=== PATIENT | female | born 1985 | race American Indian/Alaskan Native ===

== ENCOUNTER 2018-12-26 15:42 | Emergency (ER) | payer SELFPAY ==
[2018-12-26 15:59] VITALS: BP 110/53
--- NOTE | 2018-12-26 16:04 | Event Note ---
ED Screening Note Date of service: 12/26/18 Time: 15:58 ED Screening Note: 33 y/o female comes in for left trap pain. 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 Last took pain medication around 1pm. . This initial assessment/diagnostic orders/clinical plan/treatment(s) is/are s ubject to change based on patients health status, clinical progression and re- assessment by fellow clinical providers in the ED. Further treatment and workup at subsequent clinical providers discretion. Patient/guardian urged not to elope from the ED as their condition may be serious if not clinically assessed and managed. Initial orders include:
--- NOTE | 2018-12-26 16:08 | Emergency Department Report ---
Upper Extremity - HPI Chief Complaint: Extremity Problem,Nontraumatic Stated Complaint: SHOULDER/NECK PAIN Time Seen by Provider: 12/26/18 15:57 Upper Extremity: Right Shoulder Occurred When: 2 Days Mechanism: Twist Severity: moderate Symptoms: Yes Pain with Movement, No Deformity, No Limited Range of Movement, No Numbness, No Weakness, No Swelling, No Bruising/Ecchymosis, No Laceration or Abrasion Other History: 33 y/o female comes in for left trapeze pain. 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 Last took pain medication around 1pm. . ED Review of Systems ROS: Stated complaint: SHOULDER/NECK PAIN Other details as noted in HPI Comment: All other systems reviewed and negative ED Past Medical Hx - Past Medical History Previous Medical History?: No - Surgical History Past Surgical History?: No - Social History Smoking Status: Never Smoker Substance Use Type: None - Medications Home Medications: Home Medications Medication Instructions Recorded Confirmed Last Taken Type Baclofen [Lioresal] 10 mg PO TID PRN #15 tab 12/26/18 Unknown Rx Ibuprofen [Motrin 800 MG tab] 800 mg PO Q8HR PRN #15 tablet 12/26/18 Unknown Rx Upper Extremity Exam - Exam General: Vital signs noted. No distress. Alert and acting appropriately. Head and Torso: No HEENT Abnormality, No Neck Tenderness, No Chest/Lungs Abnormality, No Abdominal Tenderness, No Back Tenderness Shoulder Exam: Yes Shoulder Tenderness (Trapezez), Yes Normal Range of Motion in Shoulder, No Clavicle Tenderness, No Shoulder Deformity, No AC Joint Tenderness Arm Exam: No Arm/Humerus Tenderness, No Arm Deformity Elbow: No Elbow Tenderness, No Normal Range of Motion in Elbow, No Elbow Deformity Forearm: No Forearm Tenderness, No Forearm Deformity, No Pain with Pronation, No Pain with Supination Wrist: Yes Normal ROM in Wrist, No Wrist Tenderness, No Wrist Deformity, No Snuffbox Tenderness, No Pain with Axial Thumb Compression Hand: Yes Normal ROM in Digit(s), No Hand Tenderness, No Hand Deformity, No Digit Tenderness, No Digit(s) Deformity, No Tendon Dysfunction CMS Exam: No Broken Skin, No Normal Distal Pulses, No Normal Capillary Refill, No Normal Distal Sensation ED Course Vital Signs 12/26/18 15:57 Temperature 98.7 F Pulse Rate 90 Respiratory 18 Rate Blood Pressure 110/53 O2 Sat by Pulse 96 Oximetry ED Medical Decision Making - Medical Decision Making 33 y/o female comes in for left trap pain. 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 Last took pain medication around 1pm. . Will discharge on baclofen and Ibuprofen. Critical care attestation.: If time is entered above; I have spent that time in minutes in the direct care of this critically ill patient, excluding procedure time. ED Disposition Clinical Impression: Acute strain of neck muscle Qualifiers: Encounter type: initial encounter Qualified Code(s): S16.1XXA - Strain of muscle, fascia and tendon at neck level, initial encounter Disposition: TO HOME OR SELFCARE Is pt being admited?: No Does the pt Need Aspirin: No Condition: Stable Instructions: Muscle Strain (ED) Additional Instructions: Take pain meds as prescribed. Use warm moist heat. Prescriptions: Baclofen [Lioresal] 10 mg PO TID PRN #15 tab PRN Reason: Pain , Severe (7-10) Ibuprofen [Motrin 800 MG tab] 800 mg PO Q8HR PRN #15 tablet PRN Reason: Pain , Severe (7-10) Referrals: [facility] [place] [Outside] - 3-5 Days
== END 2018-12-26 16:26 | disposition home or self-care (01) ==
LOC: ED 15:42
DX: S16.1XXA Strain of muscle, fascia and tendon at neck level, initial encounter (principal); X58.XXXA Exposure to other specified factors, initial encounter; Y93.89 Activity, other specified; Y92.89 Other specified places as the place of occurrence of the external cause; Y99.8 Other external cause status
CPT/HCPCS: 99282

== ENCOUNTER 2021-11-04 10:57 | Emergency (ER) | payer MEDICAID, OTHER ==
--- NOTE | 2021-11-04 11:59 | XRay Report ---
Right ankle 3 views INDICATION: Right ankle pain IMPRESSION: There is a minimally displaced fracture involving the distal fibula just above the right lateral malleolus. There is moderate surrounding soft tissue edema. The ankle mortise appears symmetr ic Signer Name: Virgilio Armas MD Signed: 11/04/2021 11:55 AM Workstation Name: [email or web address]
[2021-11-04] MEDS ORDERED: oxyCODONE /ACETAMINOPHEN 5-325MG TAB PO ONE (20:30)
[2021-11-04 22:04] VITALS: BP 127/86
== END 2021-11-04 22:05 | disposition home or self-care (01) ==
LOC: ED 10:57
DX: S99.921A Unspecified injury of right foot, initial encounter (principal); Z53.21 Procedure and treatment not carried out due to patient leaving prior to being seen by health care provider; X58.XXXA Exposure to other specified factors, initial encounter; Y93.89 Activity, other specified; Y92.89 Other specified places as the place of occurrence of the external cause; Y99.8 Other external cause status
CPT/HCPCS: 99283